=== PATIENT | female | born 1995 | race Asian ===

== ENCOUNTER → 2017-03-06 | Outpatient (CLI) | payer OTHER | LOC: COL.RAD 22:20 | DX: R10.2 Pelvic and perineal pain (principal) ==

== ENCOUNTER 2017-09-22 10:40 | Emergency (ER) | payer OTHER ==
[~2017-09-22] VITALS: Ht 154.9 cm; Wt 75.9 kg
[2017-09-22 10:42] VITALS: BP 127/80; TEMP 98.6
[2017-09-22] MEDS ORDERED: SUDAFED30 MG PO (10:45)
[2017-09-22] MEDS ORDERED: ZOFRAN 4MG T4 MG/TAB PO (10:46)
[2017-09-22] MEDS ORDERED: TESSALON P100 MG/CAP PO (12:33)
[2017-09-22 12:43] VITALS: PULSE 82
== END 2017-09-22 12:43 | disposition home or self-care (01) ==
LOC: COL.ER 10:40
DX: J20.9 Acute bronchitis, unspecified (principal); F31.9 Bipolar disorder, unspecified; F41.9 Anxiety disorder, unspecified; F17.210 Nicotine dependence, cigarettes, uncomplicated
CPT/HCPCS: J2550